=== PATIENT | female | born 1985 | race Asian ===

== ENCOUNTER 2016-06-29 23:58 | Emergency (ER) | payer SELFPAY ==
[2016-06-29 23:58] VITALS: BP 135/91
--- NOTE | 2016-06-30 00:40 | PHYS DOC ---
General Stated Complaint: COUGHING Time Seen by MD: 00:17 Problems: History of Present Illness Initial Comments Patient here for cough. Patient states she's really had a daily cough for a number of years, which intermittently gets better and worse. She says it seems to get worse when she smokes more cigarettes the night before. She is here specifically today because she started new job and started coughing so hard that she had some urinary incontinence. She told her boss, and her boss wanted her to get checked out before allowing her to come back to work. She really had no fever or chills with this. There is no runny nose or sore throat. She says she only rarely has sputum production with the cough, though today she had a small amount of brown sputum. She's had no chest pain or shortness of breath with this. There's been no nausea vomiting. There is no abdominal pain. There is no other change in bowel or bladder habits except for the slight incontinence with her cough today at work. There is no focal extremity or neurologic complaints. Patient does occasionally have some post tussive emesis as well, the last time yesterday after severe coughing spell, but none today. She's been able tolerate by mouth food and fluids without difficulty today. Patient does note that she is cigarettes lately with a change in job in change of school on the part of her child. She smokes cigarettes with stress. Patient states she normally uses an albuterol inhaler for this home and takes care of her cough but she doesn't have one currently. She also has a nebulizer machine at home but no solution for it. She moved back to the area last year and has no private primary care physician. Other than present for care tonight has been nothing done for this prior to arrival and no fractures noted increase or decrease any symptoms the patient might have. Patient's past medical history is remarkable for her chronic cough as previously described. She does smoke at least a pack per day of cigarettes. She is a nonuser of ethanol. Allergies: Coded Allergies: No Known Drug Allergies (Unverified , 04/16/15) Past Medical History Medical History: other Social History Smoker: greater than 1 pack/day Alcohol: none Review of Systems All Other Systems: Reviewed and Negative Physical Exam General Appearance: WD/WN, no apparent distress Ear, Nose, Throat: normal ENT inspection, normal pharynx Neck: full range of motion, supple, normal inspection Respiratory: lungs clear, normal breath sounds, no respiratory distress Cardiovascular: regular rate, rhythm, no edema Gastrointestinal: non tender, soft Back: no CVA tenderness, no vertebral tenderness Extremities: non-tender, normal inspection, no pedal edema Neurologic/Psychiatric: alert, normal mood/affect, oriented x 3 Skin: normal color Lymphatic: no adenopathy Comments Generally this well-developed well-nourished female in no acute distress. Vitals are as noted. She is not actively exhibiting a cough at this time. Pertinent findings on physical exam shows ears to be clear. Neck is supple without adenopathy or JVD. There's no meningeal signs. Chest is clear. Cardiac vascular exam shows regular rate and rhythm without murmur. There is no perineal findings. Back shows no CVA tenderness. Extremity show no rashes cyanosis or edema. Alert, oriented and cooperative. Remainder of physical exam is clinically unremarkable. Orders, Labs, Meds Old charts note a single prior ER visit for PID. I discussed with the patient answer nature her chronic cough. Her lungs are clear, she is having no wheezing, and no active cough at this time. She really has no active URI symptoms as well, and I don't think there is any particular indication for antibiotics at this time. I don't think labs or x-rays would be paternally helpful either with her nonfocal exam. Did discuss with the patient and management of this chronic cough. She does get good relief with albuterol inhaler at home, so I written her a prescription for albuterol inhaler and we will give her one tonight from the ER as well. It also written a prescription for some albuterol nebulizer solution. She does need a note that says she was seen in the ER tonight and can return to work tomorrow and I provided that note as well. I did discuss with the patient with his chronic cough, she really will need primary care follow-up. We'll give her a list of local primary care physicians. She may require pulmonary consult as well, for evaluation this chronic cough. This may represent subtle persistent asthma, early bronchitis or emphysema, or other lung disease. She states that nobody has ever told her that it was important follow-up before, and she says she will take this to heart. She voices understanding need to follow-up with primary care or return to the ER sooner as needed if worsen anyway. She looks well, in no acute discomfort distress, okay for discharge home at this time. LUIS QUINONEZ MD Jun 30, 2016 00:40
[2016-06-30] MEDS: ALBUTEROL SULFATE 8GM INHALER. INH ONE (00:45)
== END 2016-06-30 00:55 | disposition home or self-care (01) ==
LOC: ER 23:58
DX: R05 Cough (principal); R32 Unspecified urinary incontinence; F17.210 Nicotine dependence, cigarettes, uncomplicated
CPT/HCPCS: 94640; 99283; J7613

== ENCOUNTER 2017-10-15 06:29 | Emergency (ER) | payer SELFPAY ==
[~2017-10-15] VITALS: Ht 152.4 cm; Wt 71.2 kg
[2017-10-15 06:50] VITALS: BP 151/61
--- NOTE | 2017-10-15 07:08 | ED.ADGEN ---
Past History Past Medical History: Bronchitis Past Surgical History: No Surgical History Alcohol Use: Occasionally Drug Use: None Adult General HPI HPI Patient is a 32 year old female who presents with vaginal discharge. Patient has had sx over the last 2-3 days. She does endorse prior hx of frequent BV episodes. Today, she c/o some malodorous d/c for 48 hours. No pelvic pain. no irregular vaginal bleeding. LMP was three weeks earlier. She is sexually active with the same partner over the last year. Not currently on control. Denies urinary symptoms. No nausea or vomiting. Review of Systems Review of Systems Constitutional: Denies fever HENT: Denies nasal congestion Cardiovascular: no additional complaints Respiratory: no recent illness Gastrointestinal: No abdominal pain, nausea, vomiting Musculoskeletal: no back pain Integument: Denies rash or skin lesions Neurologic: Denies headache All other systems were reviewed and found to be within normal limits, except as documented in this note. Allergies Allergies Allergies Coded Allergies Type Severity Reaction Last Updated Verified No Known Drug Allergies 04/16/15 No Physical Exam Physical Exam Constitutional: Well developed, well nourished, no acute distress, non-toxic appearance HENT: Normocephalic, atraumatic, bilateral external ears normal, oropharynx moist Eyes: EOMI Neck: Normal range of motion Skin: Warm, dry, no erythema Back: Normal ROM Extremities: no edema Abd: soft, NTTP, normal bowel sounds. Neurologic: Alert and oriented X 3 Psychologic: Affect normal Pelvic: Normal female external genitalia, vaginal mucosa is moist and not inflammed, there is some discharge in the vaginal vault that seems heavier than physiologic, also with some clumping and debris adhering to the vaginal mchugh. No CMT. no adenexal tenderness or masses. Current Patient Data Vital Signs Vital Signs Date Time Temp Pulse Resp B/P (MAP) Pulse Ox O2 Delivery O2 Flow Rate FiO2 10/15/17 06:50 64 20 98 Room Air Lab Results Laboratory Tests Test 10/15/17 06:50 Urine Collection Type Unknown Urine Color Yellow Urine Clarity Clear Urine pH 6.5 Urine Specific [place] 1.015 Urine Protein Neg (NEG-TRACE) Urine Glucose (UA) Neg mg/dL (NEG) Urine Ketones (Stick) Neg mg/dL (NEG) Urine Blood Neg (NEG) Urine Nitrite Neg (NEG) Urine Bilirubin Neg (NEG) Urine Urobilinogen Dipstick 0.2 mg/dL (0.2 mg/dL) Urine Leukocyte Esterase Neg (NEG) Urine RBC Occ /HPF (0-2) Urine WBC Occ /HPF (0-4) Urine Squamous Epithelial Cells Few /LPF Urine Bacteria Few /HPF (0-FEW) Urine Mucus Slight /LPF Urine Test Negative (NEG) Microbiology 10/15/17 Wet Prep - Final, Complete EKG EKG [] Radiology/Procedures Radiology/Procedures [] Course & Med Decision Making Course & Med Decision Making Pertinent Labs and Imaging studies reviewed. (See chart for details) 07:20: Pelvic exam completed. Exam accompanied by female registered nurse. GC /CHLAM/ wet prep sent to the lab. 07:50: Clinically, the patient seems to have yeast infection. She could also have BV. Her wet mount was negative for yeast or clue cells but plan is to treat the patient clinically today based on her exam. She is given a prescription for Flagyl as well as 1 Diflucan to take at home. Other STD testing is pending. Patient is advised to follow-up with her primary care doctor or return to the ER for any new or worsening symptoms. She was not empirically treated today for gonorrhea or chlamydia. Final Impression Final Impression BV vs Candidal vaginal infection Dragjamila Disclaimer Dragon Disclaimer This electronic medical record was generated, in whole or in part, using a voice recognition dictation system. ROQUE YIP DO Oct 15, 2017 07:08
[2017-10-15 07:14] LABS: BACTERIA,URINE FEW /HPF (0-FEW); BILIRUBIN,URINE NEG (NEG); CLARITY,URINE CLEAR; COLOR,URINE YELLOW; GLUCOSE,URINE NEG (NEG); NITRITE,URINE NEG (NEG); RBC,URINE OCC /HPF (0-2); SQUAMOUS EPITHELIAL CELL,UR FEW /LPF; UROBILINOGEN,URINE 0.2 mg/dL (0.2 mg/dL); WBC,URINE OCC /HPF (0-4)
[2017-10-15 07:15] LABS: U PREG PATIENT NEGATIVE (NEG)
[2017-10-15] MEDS ORDERED: FLUC150T PO (07:40)
[2017-10-15] MEDS ORDERED: METR500T PO (07:40)
[2017-10-18 15:08] LABS: CHLAMYDIA PROBE Negative (Negative)
== END 2017-10-15 08:06 | disposition home or self-care (01) ==
LOC: ER 06:29
DX: N89.8 Other specified noninflammatory disorders of vagina (principal)
CPT/HCPCS: 36415; 81001; 81025; 87491; 87591; 99284; Q0111

== ENCOUNTER 2019-01-25 14:19 | Emergency (ER) | payer SELFPAY ==
[~2019-01-25 14:19] MED LIST: FLUC150T PO; METR500T PO
[2019-01-25] MEDS ORDERED: HYDR-3165 PO (15:14)
[2019-01-25] MEDS ORDERED: PRED-220 PO (15:14)
[2019-01-25] MEDS ORDERED: CYCL-331 PO (15:14)
--- NOTE | 2019-01-25 15:15 | PHYS DOC ---
Past History Past Medical History: Bronchitis Past Surgical History: Other Additional Past Surgical Histo: ovarian dermoid cyst removed Alcohol Use: Occasionally Drug Use: None Adult General Chief Complaint Chief Complaint: SHOULDER INJURY HPI HPI 33-year-old female presents with right shoulder pain and right low back pain. The patient had a recent fall where she slipped and landed on her right side. She was seen at another facility. X-rays were performed or reportedly negative. She comes here because the prescriptions a referral for her were extremely expensive. She still having pain. The accident was 3 days ago. She doesn't know what else to do. She has sciatic occasionally at baseline and that is exacerbated by these injuries. She also has right lateral for pain. She does not have a physician. Review of Systems Review of Systems Constitutional: Denies fever or chills [] Eyes: Denies change in visual acuity, redness, or eye pain [] HENT: Denies nasal congestion or sore throat [] Respiratory: Denies cough or shortness of breath [] Cardiovascular: No additional information not addressed in HPI [] GI: Denies abdominal pain, nausea, vomiting, bloody stools or diarrhea [] : Denies dysuria or hematuria [] Musculoskeletal: Right shoulder pain, low back pain.[] Integument: Denies rash or skin lesions [] Neurologic: Denies headache, focal weakness or sensory changes [] Endocrine: Denies polyuria or polydipsia [] All other systems were reviewed and found to be within normal limits, except as documented in this note. Allergies Allergies Allergies Coded Allergies Type Severity Reaction Last Updated Verified No Known Drug Allergies 01/25/19 No Physical Exam Physical Exam Constitutional: Well developed, well nourished, no acute distress, non-toxic appearance. [] HENT: Normocephalic, atraumatic, bilateral external ears normal, oropharynx moist, no oral exudates, nose normal. [] Eyes: PERRLA, EOMI, conjunctiva normal, no discharge. [] Neck: Normal range of motion, no tenderness, supple, no stridor. [] Cardiovascular:Heart rate regular rhythm, no murmur [] Lungs & Thorax: Bilateral breath sounds clear to auscultation [] Abdomen: Bowel sounds normal, soft, no tenderness, no masses, no pulsatile mas ses. [] Skin: Warm, dry, no erythema, no rash. [] Back: Paraspinal muscle tenderness of the right lumbar spine [] Extremities: Pain with passive and active motion of the right shoulder. No o bvious deformity. [] Neurologic: Alert and oriented X 3, normal motor function, normal sensory function, no focal deficits noted. [] Psychologic: Affect normal, judgement normal, mood normal. [] Current Patient Data Vital Signs Vital Signs Date Time Temp Pulse Resp B/P (MAP) Pulse Ox O2 Delivery O2 Flow Rate FiO2 01/25/19 14:19 98.2 69 18 100 Room Air EKG EKG [] Radiology/Procedures Radiology/Procedures [] Course & Med Decision Making Course & Med Decision Making Pertinent Labs and Imaging studies reviewed. (See chart for details) Patient appears to have low back sprain and right shoulder sprain. I will give her 5 days of prednisone 40 mg daily as well as short course of [place] 5/325 and Flexeril for muscle relaxer. She is stable for discharge at this time. [] Dragon Disclaimer Dragon Disclaimer This electronic medical record was generated, in whole or in part, using a voice recognition dictation system. Departure Departure: Impression: Primary Impression: Sprain of right shoulder Additional Impression: Lumbar back sprain Disposition: HOME, SELF-CARE Condition: STABLE Referrals: PCP,BENJAMIN (PCP) Patient Instructions: Low Back Strain with [facility]hab[facility], Shoulder Sprain Scripts Prednisone (PREDNISONE) 10 Mg Tablet 40 MG PO DAILY for sciatic pain for 5 Days, #20 TAB Prov: GISELLE LAZO DO 01/25/19 Cyclobenzaprine Hcl (CYCLOBENZAPRINE HCL) 10 Mg Tablet 1 TAB PO TID PRN for MUSCLE SPASMS, #30 TAB Prov: GISELLE LAZO DO 01/25/19 Hydrocodone Bit/Acetaminophen (NORCO 5-325 TABLET) 1 Each Tablet 1 TAB PO PRN Q6HRS PRN for PAIN, #10 TAB 0 Refills Prov: GISELLE LAZO DO 01/25/19 Problem Qualifiers Primary Impression: Sprain of right shoulder Encounter type: initial encounter Shoulder sprain type: unspecified sprain Qualified Codes: S43.401A - Unspecified sprain of right shoulder joint, initial encounter Additional Impression: Lumbar back sprain Encounter type: initial encounter Qualified Codes: S33.5XXA - Sprain of ligaments of lumbar spine, initial encounter GISELLE LAZO DO Jan 25, 2019 15:15
[2019-01-25 15:38] VITALS: BP 119/71
== END 2019-01-25 15:37 | disposition home or self-care (01) ==
LOC: ER 14:19
DX: S43.401A Unspecified sprain of right shoulder joint, initial encounter (principal); S33.5XXA Sprain of ligaments of lumbar spine, initial encounter; W01.0XXA Fall on same level from slipping, tripping and stumbling without subsequent striking against object, initial encounter; Y93.89 Activity, other specified; Y92.89 Other specified places as the place of occurrence of the external cause; Y99.8 Other external cause status
CPT/HCPCS: 99283

== ENCOUNTER 2019-04-21 11:20 | Emergency (ER) | payer SELFPAY ==
[~2019-04-21] VITALS: Ht 152.4 cm; Wt 71.8 kg
[~2019-04-21 11:20] MED LIST changes: +CYCL-331 PO; +HYDR-3165 PO; +PRED-220 PO
[2019-04-21 12:40] LABS: COLOR,URINE YELLOW
[2019-04-21 12:41] LABS: CLARITY,URINE CLOUDY
[2019-04-21 12:42] LABS: BILIRUBIN,URINE NEG (NEG); GLUCOSE,URINE NEG (NEG)
[2019-04-21 12:43] LABS: BACTERIA,URINE MOD /HPF (0-FEW); NITRITE,URINE NEG (NEG); SQUAMOUS EPITHELIAL CELL,UR MANY /LPF; UROBILINOGEN,URINE 0.2 mg/dL (0.2 mg/dL)
--- NOTE | 2019-04-21 12:47 | RAD ---
EXAM: CHEST PA LATERAL INDICATION: Cough. TECHNIQUE: PA and lateral views COMPARISON: Abdomen CT of April 16, 2015 FINDINGS: The heart size is normal. The great vessels appear unremarkable. There is no hilar or mediastinal mass. The lungs are clear. There is no pleural effusion or pneumothorax. There are no significant osseous abnormalities. IMPRESSION: No active cardiopulmonary disease. Electronically signed by: Neha Wade MD (04/21/2019 12:44 PM) [facility]
[2019-04-21] MEDS ORDERED: TRIA15OI9 TP (13:31)
--- NOTE | 2019-04-21 13:31 | PHYS DOC ---
Past History Past Medical History: Bronchitis Past Surgical History: Other Additional Past Surgical Histo: ovarian dermoid cyst removed Alcohol Use: Occasionally Drug Use: None Adult General Chief Complaint Chief Complaint: FLU SYMPTOM HPI HPI Patient is a 33-year-old female who presented to ER today for evaluation of flulike symptom, body ache, cough nonproductive for about a week. Patient also complaint of some vaginal itching. She felt like she has a yeast infection. Patient also complaint of multiple rash on her body, she says she used yetn-nty-wcjarmy medication for it , the rash went away then it came back. Patient denies any fever. She denies any abdominal pain, no pelvic pain, no nausea vomiting. Patient denies any headache, no neck pain. All other ROS is negative unless otherwise noted in HPI Review of Systems Review of Systems See above Allergies Allergies Allergies Coded Allergies Type Severity Reaction Last Updated Verified No Known Drug Allergies 01/25/19 No Physical Exam Physical Exam See above Constitutional: Well developed, well nourished, no acute distress, non-toxic appearance. [] HENT: Normocephalic, atraumatic, bilateral external ears normal, oropharynx moist, no oral exudates, nose normal. [] Eyes: PERRLA, EOMI, conjunctiva normal, no discharge. [] Neck: Normal range of motion, no tenderness, supple, no stridor. [] Cardiovascular:Heart rate regular rhythm, no murmur [] Lungs & Thorax: Bilateral breath sounds clear to auscultation [] Abdomen: Bowel sounds normal, soft, no tenderness, no masses, no pulsatile tawanna s. [] Skin: Warm, dry, there are several round macular rash on forearm, back and chest area. Back: No tenderness, no CVA tenderness. [] Extremities: No tenderness, no cyanosis, no clubbing, ROM intact, no edema. [] Neurologic: Alert and oriented X 3, normal motor function, normal sensory functi on, no focal deficits noted. [] Psychologic: Affect normal, judgement normal, mood normal. [] Current Patient Data Vital Signs Vital Signs Date Time Temp Pulse Resp B/P (MAP) Pulse Ox O2 Delivery O2 Flow Rate FiO2 04/21/19 11:26 98.4 80 18 122/80 (94) 95 Room Air Lab Results Laboratory Tests Test 04/21/19 12:15 04/21/19 12:23 04/21/19 12:30 Urine Collection Type Unknown Urine Color Yellow Urine Clarity Cloudy Urine pH 6.5 Urine Specific [place] >=1.030 Urine Protein 30 mg/dl (NEG-TRACE) Urine Glucose (UA) Neg mg/dL (NEG) Urine Ketones (Stick) Trace mg/dL (NEG) Urine Blood Neg (NEG) Urine Nitrite Neg (NEG) Urine Bilirubin Neg (NEG) Urine Urobilinogen Dipstick 0.2 mg/dL (0.2 mg/dL) Urine Leukocyte Esterase Trace (NEG) Urine RBC 1-2 /HPF (0-2) Urine WBC 5-10 /HPF (0-4) Urine Squamous Epithelial Cells Many /LPF Urine Bacteria Mod /HPF (0-FEW) Urine Mucus Marked /LPF POC Urine HCG, Qualitative hcg negative (Negative) Group A Streptococcus Rapid Negative (NEGATIVE) EKG EKG [] Radiology/Procedures Radiology/Procedures [][place] [address] IMAGING REPORT Signed PATIENT: SUMAN ZAVALA RACCOUNT: [id number] : 1985 LOCATION: ER AGE: 33 SEX: F EXAM STATUS: REG ER ORD. PHYSICIAN: PHILL ORO DO REASON: cough - PREG TEST PROCEDURE: CHEST PA & LATERAL EXAM: CHEST PA LATERAL INDICATION: Cough. TECHNIQUE: PA and lateral views COMPARISON: Abdomen CT of April 16, 2015 FINDINGS: The heart size is normal. The great vessels appear unremarkable. There is no hilar or mediastinal mass. The lungs are clear. There is no pleural effusion or pneumothorax. There are no significant osseous abnormalities. IMPRESSION: No active cardiopulmonary disease. Electronically signed by: Barney Wade MD (04/21/2019 12:44 PM) [facility] DICTATED AND SIGNED BY: BARNEY WADE MD DATE: 04/21/19 1244 CC: PCP,NO; PHILL ORO DO ~ Course & Med Decision Making Course & Med Decision Making Pertinent Labs and Imaging studies reviewed. (See chart for details) [] Dragon Disclaimer Dragon Disclaimer This electronic medical record was generated, in whole or in part, using a voice recognition dictation system. Departure Departure: Impression: Primary Impression: Viral syndrome Additional Impression: Rash Disposition: HOME, SELF-CARE Condition: STABLE Referrals: PCP,NO (PCP) follow up with your doctor next week. Patient Instructions: Rash, Viral Syndrome Additional Instructions: Thank you for visiting our Emergency Department. We appreciate you trusting us with your care. If any additional problems come up don't hesitate to return to visit us. Please follow up with your primary care provider so they can plan additional care if needed and know about the problem that you had. If symptoms worsen come back to the Emergency Department. Any concerning symptoms that start such as chest pain, shortness of air, weakness or numbness on one side of the body, running high fevers or any other concerning symptoms return to the ER. Scripts Fluconazole (DIFLUCAN) 150 Mg Tablet 1 TAB PO Q3DAYS for YEAST INFECTION, #2 TAB 1 Refill Prov: PHILL ORO DO 04/21/19 Triamcinolone Acetonide (TRIAMCINOLONE ACETONIDE) 15 Gm Oint...g. 1 MARIBETH TP PRN TID PRN for rash, #30 GM 0 Refills apply to affected area(s) Prov: PHILL ORO DO 04/21/19 Problem Qualifiers PHILL ORO DO Apr 21, 2019 13:31
[2019-04-21] MEDS ORDERED: FLUC150T PO (13:42)
[2019-04-21 13:45] VITALS: BP 130/72
== END 2019-04-21 13:45 | disposition home or self-care (01) ==
LOC: ER 11:20
DX: B34.9 Viral infection, unspecified (principal); R21 Rash and other nonspecific skin eruption
CPT/HCPCS: 71046; 81001; 81025; 87070; 87086; 87880; 99285

== ENCOUNTER 2019-07-14 05:54 | Emergency (ER) | payer SELFPAY ==
[~2019-07-14] VITALS: Ht 152.4 cm; Wt 62.3 kg
[2019-07-14 05:54] VITALS: BP 142/92
[~2019-07-14 05:54] MED LIST changes: +TRIA15OI9 TP
[2019-07-14 07:03] LABS: AMORPHOUS SEDIMENT,UR PRESENT /HPF; BACTERIA,URINE 0 /HPF (0-FEW); BILIRUBIN,URINE NEG (NEG); CLARITY,URINE HAZY; COLOR,URINE AMBER; GLUCOSE,URINE NEG (NEG); NITRITE,URINE NEG (NEG); RBC,URINE OCC /HPF (0-2); SQUAMOUS EPITHELIAL CELL,UR MANY /LPF; UROBILINOGEN,URINE 0.2 mg/dL (0.2 mg/dL)
--- NOTE | 2019-07-14 07:09 | PHYS DOC ---
Past History Past Medical History: Bronchitis Additional Past Medical Histor: ovarian dermoid cysts, ulcers Past Surgical History: Other Additional Past Surgical Histo: ovarian dermoid cyst removed Alcohol Use: Occasionally Drug Use: None General Adult EDM: Chief Complaint: ABDOMINAL PAIN HPI: HPI: Patient is a 33-year-old female who presented to ER today for evaluation of epigastric pain. Patient is a business analyst ecommerce, she has been under a lot of stress lately because of the COVID-19 pandemic. Patient is stressed out about it. Patient started having epigastric pain a few days ago, pain worse after eating. Patient denies any nausea vomiting, no fever, no cough, no chest pain or trouble breathing. Patient denies any lower abdominal pain. Review of Systems: Review of Systems: Constitutional: Denies fever or chills Eyes: Denies change in visual acuity HENT: Denies nasal congestion or sore throat Respiratory: Denies cough or shortness of breath Cardiovascular: Denies chest pain or edema GI: Positive for epigastric abdominal pain, no nausea, vomiting, bloody stools or diarrhea : Denies dysuria Musculoskeletal: Denies back pain or joint pain Integument: Denies rash Neurologic: Denies headache, focal weakness or sensory changes Endocrine: Denies polyuria or polydipsia Lymphatic: Denies swollen glands Psychiatric: Denies depression or anxiety Heart Score: Risk Factors: Risk Factors: DM, Current or recent (<one month) smoker, HTN, HLP, family history of CAD, obesity. Risk Scores: Score 0 - 3: 2.5% MACE over next 6 weeks - Discharge Home Score 4 - 6: 20.3% MACE over next 6 weeks - Admit for Clinical Observation Score 7 - 10: 72.7% MACE over next 6 weeks - Early Invasive Strategies Allergies: Allergies: Allergies Coded Allergies Type Severity Reaction Last Updated Verified No Known Drug Allergies 01/25/19 No Physical Exam: PE: Constitutional: Well developed, well nourished, no acute distress, non-toxic appearance. [] HENT: Normocephalic, atraumatic, bilateral external ears normal, oropharynx moist, no oral exudates, nose normal. [] Eyes: PERRLA, EOMI, conjunctiva normal, no discharge. [] Neck: Normal range of motion, no tenderness, supple, no stridor. [] Cardiovascular:Heart rate regular rhythm, no murmur [] Lungs & Thorax: Bilateral breath sounds clear to auscultation [] Abdomen: Bowel sounds normal, soft, no tenderness, no masses, no pulsatile masses. [] Skin: Warm, dry, no erythema, no rash. [] Back: No tenderness, no CVA tenderness. [] Extremities: No tenderness, no cyanosis, no clubbing, ROM intact, no edema. [] Neurologic: Alert and oriented X 3, normal motor function, normal sensory function, no focal deficits noted. [] Psychologic: Affect normal, judgement normal, mood normal. [] Current Patient Data: Labs: Laboratory Tests Test 07/14/19 06:19 07/14/19 06:26 Urine Collection Type Unknown Urine Color [place] Urine Clarity Hazy Urine pH 6.0 Urine Specific [place] 1.025 Urine Protein Neg (NEG-TRACE) Urine Glucose (UA) Neg mg/dL (NEG) Urine Ketones (Stick) Trace mg/dL (NEG) Urine Blood Neg (NEG) Urine Nitrite Neg (NEG) Urine Bilirubin Neg (NEG) Urine Urobilinogen Dipstick 0.2 mg/dL (0.2 mg/dL) Urine Leukocyte Esterase Neg (NEG) Urine RBC Occ /HPF (0-2) Urine WBC 1-4 /HPF (0-4) Urine Squamous Epithelial Cells Many /LPF Urine Amorphous Sediment Present /HPF Urine Bacteria 0 /HPF (0-FEW) Urine Mucus Mod /LPF POC Urine HCG, Qualitative hcg negative (Negative) Vital Signs: Vital Signs Date Time Temp Pulse Resp B/P (MAP) Pulse Ox O2 Delivery O2 Flow Rate FiO2 07/14/19 05:54 98.2 86 18 142/92 (109) 98 Room Air EKG: EKG: [] Radiology/Procedures: Radiology/Procedures: [] Course & Med Decision Making: Course & Med Decision Making Pertinent Labs and Imaging studies reviewed. (See chart for details) [] Dragon Disclaimer: Dragon Disclaimer: This electronic medical record was generated, in whole or in part, using a voice recognition dictation system. Departure Departure: Impression: Primary Impression: Gastritis Disposition: 01 HOME, SELF-CARE Condition: STABLE Referrals: DOROTHY BA DO (PCP) follow up with your doctor next week for reevaluation Patient Instructions: Gastritis, Adult Additional Instructions: Thank you for visiting our Emergency Department. We appreciate you trusting us with your care. If any additional problems come up don't hesitate to return to visit us. Please follow up with your primary care provider so they can plan additional care if needed and know about the problem that you had. If symptoms worsen come back to the Emergency Department. Any concerning symptoms that start such as chest pain, shortness of air, weakness or numbness on one side of the body, running high fevers or any other concerning symptoms return to the ER. Scripts Omeprazole Magnesium (PRILOSEC OTC) 20 Mg Tablet. 20 MG PO DAILY for gastritis for 30 Days, #30 TAB Prov: PHILL ORO DO 07/14/19 PHILL ORO DO July 14, 2019 07:09
[2019-07-14] MEDS ORDERED: OMEP20TA63 PO (07:10)
== END 2019-07-14 07:40 | disposition home or self-care (01) ==
LOC: ER 05:54
DX: K29.70 Gastritis, unspecified, without bleeding (principal)
CPT/HCPCS: 81001; 81025; 99283